=== PATIENT | female | born 1955 | race Caucasian/White ===

== ENCOUNTER 2017-10-17 07:24 | Day surgery (SDC) | payer MEDICAID ==
[~2017-10-17 07:24] MED LIST: CEFAZOLIN 1 GM INJ; CEFAZOLIN 2 GM/50 ML (PMX) 50 ML IVPB; DEXAMETHASONE 4 MG/ML 1 ML INJ; SOD CHLORIDE 0.9% 1,000 ML IV
[2017-10-17] MEDS ORDERED: PROPOFOL 40 ML (14:00)
[2017-10-17] MEDS ORDERED: FENTAnyl 50 MCG/ML VIAL (14:06)
[2017-10-17] MEDS ORDERED: ONDANSETRON 4 MG INJ ×2 (14:08→14:58)
[2017-10-17] MEDS ORDERED: SUGAMMADEX SODIUM 200 MG/2 ML VIAL IV (14:54)
[2017-10-17] MEDS ORDERED: FENTAnyl 50 MCG/ML VIAL IV ×2 (16:00)
[2017-10-17] MEDS ORDERED: ONDANSETRON 4 MG INJ IV (16:00)
[2017-10-17] MEDS: FENTAnyl 50 MCG/ML VIAL IV (16:22)
== END 2017-10-17 17:37 | disposition home or self-care (01) ==
LOC: SDS 07:24
DX: D05.11 Intraductal carcinoma in situ of right breast (principal); E66.9 Obesity, unspecified; Z68.35 Body mass index [BMI] 35.0-35.9, adult
CPT/HCPCS: 19301; 88307